=== PATIENT | female | born 1980 | race African-American/Black ===

== ENCOUNTER 2018-09-04 10:03 | Emergency (ER) | payer MEDICAID ==
[~2018-09-04] VITALS: Ht 172.7 cm; Wt 106.0 kg
[2018-09-04] MEDS ORDERED: IBUPROFEN 600MG TABLET PO ONE (11:00)
[2018-09-04 14:24] VITALS: BP 128/78
== END 2018-09-04 14:29 | disposition home or self-care (01) ==
LOC: ER 10:41
DX: S16.1XXA Strain of muscle, fascia and tendon at neck level, initial encounter (principal); V89.2XXA Person injured in unspecified motor-vehicle accident, traffic, initial encounter; Y93.89 Activity, other specified; Y92.89 Other specified places as the place of occurrence of the external cause; Y99.8 Other external cause status
CPT/HCPCS: 72040; 81025; 99283